=== PATIENT | male | born 1985 | race Caucasian/White ===

== ENCOUNTER 2016-10-19 22:09 | Emergency (ER) | payer OTHER ==
[~2016-10-19] VITALS: Ht 190.5 cm; Wt 148.1 kg
[2016-10-19 22:29] LABS: ADD MIUA? YES; BILIRUBIN NEGATIVE; BLOOD SMALL; COLOR YELLOW ((YELLOW)); GLUCOSE (STRIP) NEGATIVE; KETONES NEGATIVE; LEUKOCYTES NEGATIVE; NITRITE NEGATIVE; PROTEIN (STRIP) NEGATIVE; SPECIFIC GRAVITY 1.024 (1.000-1.030)
[2016-10-19 22:35] LABS: BACTERIA NONE SEEN /HPF; EPITHELIAL CELLS RARE /HPF; MUCUS NONE SEEN /LPF; RED BLOOD CELLS 0-5 /HPF (0-5); UCUL ADDED? NO; WHITE BLOOD CELLS 0-5 /HPF (0-5)
[2016-10-20 00:03] LABS: HEMATOCRIT 42.1 % (38.0-50.0); MCHC 33.5 G/DL (30.0-36.0); MCV 80.7 FL (86-99); MEAN PLAT.VOLUME 10.6 uM^3 (9.0-12.4); PLATELET COUNT 275 K/uL (156-360); RBC DIS.WIDTH-CV 12.7 % (11.8-14.6); RBC DIS.WIDTH-SD 36.5 % (39-53); RED BLOOD COUNT 5.22 M/uL (4.00-5.50); WHITE BLOOD COUNT 8.4 K/uL (4.1-10.2)
[2016-10-20 00:12] LABS: CHLORIDE 105 mEq/L (99-109); POTASSIUM 4.6 mEq/L (3.7-5.4); SODIUM 141 mEq/L (136-147)
[2016-10-20 00:14] LABS: GLUCOSE 162 mg/dL (70-99)
[2016-10-20 00:15] LABS: ANION GAP 10 MEQ/L (2-14)
[2016-10-20 00:16] LABS: TOTAL BILIRUBIN 0.5 mg/dL (0.0-1.0)
[2016-10-20 00:18] LABS: ALKALINE PHOSPHATASE 55 IU/L (3-129); GFR ESTIMATE (CALCULATED) > 59 mL/min/
[2016-10-20 00:19] LABS: UREA NITROGEN (BUN) 20 mg/dL (9-23)
[2016-10-20 00:21] LABS: LIPASE 30 U/L (1.0-51.0)
[2016-10-20] MEDS ORDERED: ZOFRAN ODT4 MG PO (00:44)
[2016-10-20] MEDS ORDERED: PERCOCET 5/31 TABLET PO (00:44)
[2016-10-20 01:00] VITALS: BP 160/80
== END 2016-10-20 01:21 | disposition home or self-care (01) ==
LOC: EXP 22:09 → EME 22:09 → EXP 10-20 01:21
PROVIDERS: Physician Assistant
DX: K80.20 Calculus of gallbladder without cholecystitis without obstruction (principal); E11.9 Type 2 diabetes mellitus without complications; Z87.891 Personal history of nicotine dependence
CPT/HCPCS: 76705; 80053; 81003; 83690; 85027; 99281; 99284

== ENCOUNTER 2016-11-26 08:45 | Day surgery (SDC) | payer OTHER ==
[~2016-11-26] VITALS: Ht 190.5 cm; Wt 148.3 kg
[~2016-11-26 08:45] MED LIST: GLUCOPHAGE500 MG PO; METFORMIN HCL500 M4 PO; PERCOCET 5/31 TABLET PO; ZESTRIL20 MG PO; ZOFRAN ODT4 MG PO
[2016-11-26 09:32] VITALS: BP 142/88
[2016-11-26 10:04] LABS: POINT-OF-CARE METER ID UU14174212
[2016-11-26] MEDS ORDERED: NORCO 5/3251 TABLET PO (15:26)
[2016-11-26 15:55] LABS: POINT-OF-CARE METER ID UU13113675
[2016-11-26 16:35] VITALS: BP 148/99
[2016-11-26 17:38] VITALS: BP 124/85
[2016-11-26 17:58] VITALS: BP 135/67
== END 2016-11-26 18:10 | disposition home or self-care (01) ==
LOC: SDC 08:45
PROVIDERS: Surgery
DX: K80.10 Calculus of gallbladder with chronic cholecystitis without obstruction (principal); E11.9 Type 2 diabetes mellitus without complications; I10 Essential (primary) hypertension; K21.9 Gastro-esophageal reflux disease without esophagitis; E78.5 Hyperlipidemia, unspecified; E78.00 Pure hypercholesterolemia, unspecified; Z88.0 Allergy status to penicillin; Z83.3 Family history of diabetes mellitus; Z82.49 Family history of ischemic heart disease and other diseases of the circulatory system; Z80.0 Family history of malignant neoplasm of digestive organs; E66.01 Morbid (severe) obesity due to excess calories; Z68.41 Body mass index [BMI] 40.0-44.9, adult; Z87.891 Personal history of nicotine dependence; Z79.84 Long term (current) use of oral hypoglycemic drugs
CPT/HCPCS: 74300; 82948; 88304; 93005; J0131; J0330; J1170; J1885; J2250; J2405; J2710; J2765; J3010; S0020